=== PATIENT | female | born 1960 | race Hispanic/Latino ===

== ENCOUNTER 2017-06-14 10:39 | Outpatient (CLI) | payer OTHER ==
--- NOTE | 2017-06-14 11:44 | Mammography Report ---
Bilateral mammogram: No previous studies available. CAD study utilized. Findings: Predominance adipose tissue bilaterally. No microcalcification. Focal asymmetry is inner left breast and in the upper right breast. Normal axilla. Impression: Focal asymmetry is right and left breast. Comparison with previous studies is recommended. If previous studies are not available spot magnification and if necessary sonographic examination
== END 2017-06-14 10:40 | disposition home or self-care (01) ==
LOC: MAMMO 10:39
PROVIDERS: ATTEND Family Medicine
DX: Z12.31 Encounter for screening mammogram for malignant neoplasm of breast (principal)
CPT/HCPCS: 77067; G0202